=== PATIENT | female | born 1950 | race Caucasian/White ===

== ENCOUNTER 2019-12-15 12:58 | Outpatient (CLI) | payer MEDICARE, OTHER, SELFPAY ==
--- NOTE | ~2019-12-15 | US_ITS ---
EXAMINATION: US carotid duplex BI DATE: 12/15/2019 13:35 INDICATION: Stroke. TECHNIQUE: Grayscale, color Doppler, and pulsed Doppler images of the cervical carotid arteries were obtained. The degree of vessel stenosis is placed in one of the following categories: normal, <50%, 5 0-69%, >=70% but less than near-occlusion, near-occlusion, or total occlusion. Note that percent sten osis relative to normal distal artery lumen diameter is indirectly measured from velocity measurement s as described by Michael, et al. Radiology 2003; 229:340-346. COMPARISON: Ultrasound 07/17/2018, CTA neck 07/17/2018 FINDINGS: RIGHT: The right common carotid artery (CCA) peak systolic velocity (PSV) is 57 cm/s. The right internal car otid artery (ICA) PSV is 257 cm/s. The right ICA end-diastolic velocity (EDV) is 91 cm/s. The right I CA/CCA PSV ratio is 4.5. Grayscale and color Doppler images yield an estimate of >=50% diameter reduc tion from plaque in the ICA. There is antegrade flow in the right vertebral artery. LEFT: The left CCA PSV is 77 cm/s. The left ICA PSV is 129 cm/s. The left ICA EDV is 50 cm/s. The left ICA/ CCA PSV ratio is 1.7. Grayscale and color Doppler images yield an estimate of <50% diameter reduction from plaque in the ICA. There is antegrade flow in the left vertebral artery. IMPRESSION: 1. >=70% stenosis in the right internal carotid artery, but less than near occlusion. 2. <50% stenosis in the left internal carotid artery. Reviewed, dictated and finalized at location A. ER TENDER IMPRESSION: 1. >=70% stenosis in the right internal carotid artery, but less than near occl usion. 2. <50% stenosis in the left internal carotid artery.
== END 2019-12-15 12:59 | disposition home or self-care (01) ==
PROVIDERS: PCP Internal Medicine; Visit Provider Internal Medicine
DX: I65.23 Occlusion and stenosis of bilateral carotid arteries (principal)
CPT/HCPCS: 93880

== ENCOUNTER 2020-01-29 08:57 | Outpatient (CLI) | payer MEDICARE, OTHER, SELFPAY ==
--- NOTE | 2020-02-13 17:27 | SLEEP_ITS ---
Basic nocturnal polysomnogram. DATE OF STUDY: 01/29/2020 ORDERING PROVIDER: Emmy Veras. REASON FOR THIS STUDY: Poor quality sleep, recent stroke and atrial fibrillation. HISTORY: This patient is a 69-year-old female, 5 feet 4 inches tall, weighing 197 pounds with a body mass index of 33.8. She had a stroke in July of 2018. She has had atrial fibrillation. Her workers compensation claims specialist was recommending a sleep study, but she has put it off. 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 In addition to atrial fibrillation, she had atrial flutter found on a heart monitor. She has unusual sleep schedule, staying up very late and sleeping in late. She has restless sleep, tossing and turning. She sleeps in a separate room from her , as he goes to sleep at 9 o'clock and wakes around 5 in the morning. She is not aware of snoring, but her spouse says that she snores. She says that it is rare that others complain about it. She does not awaken from sleep feeling short of breath or with heartburn or choking. She occasionally has trouble sleeping with a cold. She does not gasp for breath at night. She rarely is told by others that she has breathing problems at night. She does not sweat excessively at night. She occasionally notices her heart pounding or beating irregularly at night. She occasionally falls asleep in the chair more frequently as she is watching television in the recliner. She rarely falls asleep involuntarily. She never falls asleep while driving. She does not fall asleep during physical effort or with laughing or crying. She does not have loss of muscle tone with strong emotion. She is retired, so her daytime sleepiness does not impact her functioning. She occasionally feels paralyzed on waking or falling asleep. She rarely has vivid dreamlike scenes upon awakening or falling asleep. She is never afraid to go to sleep. She denies having nightmares. She rarely remembers her dreams. She occasionally has racing thoughts. She occasionally feels sad or depressed. She frequently is having anxiety mainly about the current pandemic. She occasionally has muscular tension. She rarely notices parts of her body jerking. She rarely kicks at night. She does not have crawly achy feelings in her legs. She occasionally has leg pain at night. She does not have morning jaw pain. She does not grind her teeth. She occasionally is bothered by pain in her hip and knee during the day. She rarely is awakened by pain at night. She occasionally wakes up feeling stiff in the morning. She rarely wakes up with sore or achy muscles and rarely wakes up with pain in the neck and spine. She has memory problems and palpitations. Normal bedtime is between 2:00 a.m. and 4:30 a.m. taking a 0.5 hour to fall asleep, waking one to three times to use the bathroom. She wakes in the morning between 11:00 a.m. or 2 in the afternoon. Weekend schedule is the same. She estimates that she gets between 6 and 8 hours of sleep at night. She does take naps. A short nap can be refreshing. She feels better in the evening than immediately after waking up. She never smoked tobacco. She has 1 cup of coffee a day. She has off a glass of wine once a month. MEDICAL COMORBIDITIES: Hypertension, atrial fibrillation, atrial flutter, tachy-nikolas syndrome, dyslipidemia, right basal ganglia stroke on July 16, 2018. MEDICATIONS: 1. Losartan/hydrochlorothiazide 100/12.5 one tablet daily. 2. Ruffin-3 fatty acids 5 meals daily. 3. Xarelto 20 mg daily. 4. Rosuvastatin 20 mg a day. 5. Kenalog cream for her eczema. 6. Cannabidiol extract 1 daily as needed. 7. Vitamin B12 drops 1 under the tongue daily. 8. Acetaminophen p.r.n. q.6 hours pain. DESCRIPTION OF THE STUDY: On the
== END 2020-01-29 08:58 | disposition home or self-care (01) ==
LOC: ANHCSM 08:58
PROVIDERS: PCP Internal Medicine; Visit Provider Nurse Practitioner Adult Health
DX: I49.8 Other specified cardiac arrhythmias (principal)
CPT/HCPCS: 95810

== ENCOUNTER 2020-10-07 15:02 | Outpatient (CLI) | payer MEDICARE, OTHER, SELFPAY ==
--- NOTE | ~2020-10-07 | XR_ITS ---
EXAMINATION: XR shoulder LT min 2V DATE: 10/07/2020 15:32 INDICATION: Left shoulder pain. TECHNIQUE: 4 views of left shoulder were obtained. COMPARISON: Left shoulder radiographs 05/29/2013 FINDINGS: Bone alignment is normal. No fracture. Joint spaces are well maintained. IMPRESSION: 1. Normal left shoulder. Reviewed, dictated and finalized at location A. E HOST IMPRESSION: 1. Normal left shoulder.
--- NOTE | ~2020-10-07 | XR_ITS ---
EXAMINATION:XR_CERV2-3V_CR DATE: 10/07/2020 15:33 INDICATION: 3 days of posterior neck pain radiating to the left shoulder TECHNIQUE: 3 lateral views of the cervical spine were obtained in neutral, flexion and extension COMPARISON: None FINDINGS: 1-2 mm anterolisthesis of C4 on C5 and C5 on C6, both of which remain unchanged with flexion and whic h reduces to neutral on extension. Odontoid is intact. Normal atlantoaxial interval. Vertebral body heights are normal. Mild disc height loss at C6-C7, minimal at C4-C5. Multilevel mild to moderate cer vical facet osteoarthritis. Prevertebral soft tissues are normal. Likely atherosclerotic calcificati ons in the region of the carotid bulbs. IMPRESSION: 1. Mild cervical spondylosis with 1-2 mm anterolisthesis C4 on C5 which is unchanged with flexion whi ch reduces on extension. Reviewed, dictated and finalized at location . SURVEY WORKER IMPRESSION: 1. Mild cervical spondylosis with 1-2 mm anterolisthesis C4 on C5 which is unch anged with flexion which reduces on extension.
== END 2020-10-07 15:03 | disposition home or self-care (01) ==
PROVIDERS: PCP Internal Medicine; Visit Provider Internal Medicine
DX: M47.812 Spondylosis without myelopathy or radiculopathy, cervical region (principal); M25.512 Pain in left shoulder
CPT/HCPCS: 72040; 73030

== ENCOUNTER 2020-10-14 13:23 | Outpatient (CLI) | payer MEDICARE, OTHER, SELFPAY ==
--- NOTE | ~2020-10-14 | CT_ITS ---
EXAMINATION: CTA neck EXAM DATE: 10/14/2020 13:58 INDICATION: Z86.73 - Personal history of transient ischemic attack (TIA) TECHNIQUE: Spiral CTA of the carotid arteries was performed with intravenous injection 100cc of Omnip aque 350. Axial, coronal, sagittal reformatted images reviewed. Additional reformatted images creat ed on dedicated 3-D workstation. NASCET comparable standard used to assess the degree of arterial st enosis. The dose-length product (DLP) for this examination was 570.09 mGy-cm. The exposure was tail ored according to patient size (auto mA exposure control), and iterative reconstruction (ASIR) was us ed as additional dose reduction technique. There is no prior study for comparison. FINDINGS: There is moderate right carotid bulb calcified and noncalcified plaque, with the distal asp ect of the bulb demonstrating 60% stenosis. There is less plaque in the left carotid bulb with 0% jimmy nosis. There is tortuosity of the left internal carotid artery proximally with some kinking of this v essel. Mild bilateral carotid siphon arterial sclerosis without stenosis. The vertebral arteries are codominant. There is no carotid or vertebral arterial dissection or fibromuscular dysplasia. Mild to moderate cervical spondylosis. IMPRESSION: 1. Right carotid bulb 60% stenosis distally. 2. Left carotid 0% stenosis. Reviewed, dictated and finalized at location A. WASHER
[2020-10-14 13:52] LABS: Estimated Glomerular Filt Rate 49
== END 2020-10-14 13:24 | disposition home or self-care (01) ==
PROVIDERS: PCP Internal Medicine; Visit Provider Internal Medicine
DX: I65.21 Occlusion and stenosis of right carotid artery (principal)
CPT/HCPCS: 70498; Q9967

== ENCOUNTER 2021-06-05 09:37 | Outpatient (CLI) | payer MEDICARE, OTHER, SELFPAY ==
--- NOTE | ~2021-06-05 | US_ITS ---
US abdomen limited DATE: 06/05/2021 10:34 INDICATION: Right upper quadrant abdominal pain, epigastric pain TECHNIQUE: Real-time imaging of liver, pancreas, gallbladder COMPARISON: gallbladder ultrasound examination FINDINGS: No hepatic space-occupying mass lesion is evident. Normal hepatopedal portal venous flow di rection. No pancreatic mass lesion is detected, but the tail is not completely visualized. There are multiple dependent gallstones, the largest approximately 1.8 cm. Negative sonographic Edu y's sign. Common bile duct measures 4 mm IMPRESSION: Cholelithiasis Reviewed, dictated and finalized at Location A. Reviewed, dictated and finalized at location A. IMPRESSION: Cholelithiasis
== END 2021-06-05 09:38 | disposition home or self-care (01) ==
PROVIDERS: PCP Internal Medicine; Visit Provider Internal Medicine
DX: R10.11 Right upper quadrant pain (principal); Z87.19 Personal history of other diseases of the digestive system; K80.20 Calculus of gallbladder without cholecystitis without obstruction
CPT/HCPCS: 76705

== ENCOUNTER 2023-02-09 14:45 | Outpatient (CLI) | payer MEDICARE, OTHER, SELFPAY ==
--- NOTE | ~2023-02-09 | XR_ITS ---
EXAMINATION: XR forearm LT 2V INDICATION: Left elbow pain, initial encounter TECHNIQUE: Two views of the left elbow were obtained. COMPARISON: None available FINDINGS: There is a nondisplaced fracture in the lateral aspect of the humeral head which extends to the proximal articular surface. An elbow joint effusion is present. No additional acute osseous abno rmality is identified. IMPRESSION: 1. Nondisplaced radial head fracture. Reviewed, dictated and finalized at location F.
== END 2023-02-09 14:46 | disposition home or self-care (01) ==
PROVIDERS: PCP Internal Medicine; Visit Provider Internal Medicine
DX: S52.125A Nondisplaced fracture of head of left radius, initial encounter for closed fracture (principal); X58.XXXA Exposure to other specified factors, initial encounter
CPT/HCPCS: 73090

== ENCOUNTER 2023-02-16 12:57 | Outpatient (CLI) | payer MEDICARE, OTHER, SELFPAY ==
--- NOTE | ~2023-02-16 | CT_ITS ---
EXAMINATION: CT abdomen pelvis wo con DATE: 02/16/2023 13:27 INDICATION: Microscopic and gross hematuria TECHNIQUE: Computed tomography (CT) of the abdomen and pelvis was performed without intravenous contr ast. The dose-length product (DLP) was 862.93 mGy-cm. Automated exposure control and iterative recons truction technique were employed. COMPARISON: None FINDINGS: Minimal dependent atelectasis is present in the lung bases. Cardiomegaly is noted. A stone is present in the nondistended gallbladder. The liver, spleen, pancreas, and adrenal glands are aurelio l. Nonobstructing stones of the right kidney measure up to 3 mm. There is a 3 mm nonobstructing stone of the left kidney. There is a 1.5 cm cyst of the left kidney. There is a 3 mm stone of the distal l eft ureter. No significant hydronephrosis or hydroureter are identified. Colonic diverticulosis is pr esent without evidence of diverticulitis. The appendix is normal. There is moderate lumbar spondylosi s. No pathologically enlarged abdominal or pelvic lymph nodes are identified. No free intraperitonea l gas or evidence of bowel obstruction. IMPRESSION: 1. 3 mm stone of the distal left ureter. 2. Nonobstructing bilateral nephrolithiasis. Reviewed, dictated and finalized at location B.
--- NOTE | ~2023-02-16 | US_ITS ---
EXAMINATION: US carotid duplex BI DATE: 02/16/2023 15:34 INDICATION: Carotid atherosclerosis and stenosis. Transient ischemic attack. TECHNIQUE: Grayscale, color Doppler, and pulsed Doppler images of the cervical carotid arteries were obtained. The degree of vessel stenosis is placed in one of the following categories: normal, <50%, 5 0-69%, >=70% but less than near-occlusion, near-occlusion, or total occlusion. Note that percent sten osis relative to normal distal artery lumen diameter is indirectly measured from velocity measurement s as described by Michael, et al. Radiology 2003; 229:340-346. COMPARISON: 12/15/2019 FINDINGS: RIGHT: The right common carotid artery (CCA) peak systolic velocity (PSV) is 65 cm/s. The right internal car otid artery (ICA) PSV is 148 cm/s. The right ICA end-diastolic velocity (EDV) is 48 cm/s. The right I CA/CCA PSV ratio is 2.3. Grayscale and color Doppler images yield an estimate of 50-69% diameter redu ction from plaque in the ICA. The external carotid artery (ECA) PSV is 11 cm/s. There is antegrade fl ow in the right vertebral artery. LEFT: The left CCA PSV is 81 cm/s. The left ICA PSV is 102 cm/s. The left ICA EDV is 37 cm/s. The left ICA/ CCA PSV ratio is 1.3. Grayscale and color Doppler images yield an estimate of <50% diameter reduction from plaque in the ICA. The ECA PSV is 65 cm/s. There is antegrade flow in the left vertebral artery . IMPRESSION: 1. 50-69% stenosis in the right internal carotid artery. 2. <50% stenosis in the left internal carotid artery. 3. Cardiac arrhythmia is present. Correlate with EKG. Reviewed, dictated and finalized at location A.
== END 2023-02-16 12:58 | disposition home or self-care (01) ==
PROVIDERS: PCP Internal Medicine; Visit Provider Internal Medicine
DX: R31.9 Hematuria, unspecified (principal); I65.23 Occlusion and stenosis of bilateral carotid arteries; R09.89 Other specified symptoms and signs involving the circulatory and respiratory systems; Z86.73 Personal history of transient ischemic attack (TIA), and cerebral infarction without residual deficits; N20.2 Calculus of kidney with calculus of ureter
CPT/HCPCS: 74176; 93880

== ENCOUNTER 2023-04-28 16:36 | Outpatient (CLI) | payer MEDICARE, OTHER, SELFPAY ==
--- NOTE | ~2023-04-28 | CT_ITS ---
Non-contrast CT scan of the Abdomen and Pelvis Clinical indication: Abdominal pain Technique: 2.5 mm axial scans were obtained through the abdomen and pelvis without intravenous or or al contrast. Dose reduction technique was used on this scan by utilizing automated exposure control a nd iterative reconstruction technique. The dose-length product (DLP) was 445.65 mGy-cm. Findings: Images through the lung bases reveal minimal bibasilar scarring or atelectasis. Small bilateral nonobstructing renal stones are present. No ureteral stone or hydronephrosis on eithe r side. The liver, spleen, pancreas, and adrenals appear normal. Small calcified gallstones are present. Ther e are atherosclerotic calcifications of the aorta. There is no evidence of bowel obstruction. Images through the pelvis were performed. There is no evidence of ascites or lymphadenopathy. Urinary bladder unremarkable. No adnexal mass seen. Impression: Small bilateral nonobstructing renal stones. Cholelithiasis. Reviewed, dictated and finalized at [facility]. Impression: Small bilateral nonobstructing renal stones. Cholelithiasis.
== END 2023-04-28 16:37 | disposition home or self-care (01) ==
LOC: ANHIMG 16:42
PROVIDERS: PCP Internal Medicine; Visit Provider Urology
DX: N20.1 Calculus of ureter (principal); K80.20 Calculus of gallbladder without cholecystitis without obstruction
CPT/HCPCS: 74176

== ENCOUNTER 2023-08-23 12:50 | Outpatient (CLI) | payer MEDICARE, OTHER, SELFPAY | END 2023-08-23 12:51 | disposition home or self-care (01) | LOC: ANHAUDASC 12:51 | PROVIDERS: PCP Internal Medicine; Visit Provider Internal Medicine | DX: H90.3 Sensorineural hearing loss, bilateral (principal) | CPT/HCPCS: 92557; 92567 ==

== ENCOUNTER 2023-10-19 14:49 | Outpatient (CLI) | payer MEDICARE, OTHER, SELFPAY ==
--- NOTE | ~2023-10-19 | XR_ITS ---
XR knee LT min 4V 10/19/2023 15:30 Indication: Left knee pain Procedure: 4 views left knee Comparison: No prior studies for comparison. Findings: Moderate osteoarthritis. No fracture or traumatic malalignment. No significant joint effusi on. No foreign bodies. Impression: 1: Moderate tricompartment osteoarthritis. Reviewed, dictated and finalized at location L. ICIAN GYNECOLOGIST Impression: 1: Moderate tricompartment osteoarthritis.
--- NOTE | ~2023-10-19 | XR_ITS ---
EXAM: XR elbow LT min 3V DATE: 10/19/2023 15:30 HISTORY: FALL 1 DAY,ABRASIONS POST ELBOW/ANT KNEE, HX RADIAL FX 01/07 . COMPARISON: 03/23/2023; x-ray forearm 02/01/2023. FINDINGS: Normal mineralization. Longitudinal oriented fracture of the radial head, with minimal dep ression of the lateral segment. Fracture line is located in a very similar location to that seen in t he prior studies, which raises the possibility of incomplete healing or nonunion. Small joint effusio n. No lytic or blastic lesion. Joint spaces are maintained. No erosion or periosteal change. Posterio r soft tissue swelling. IMPRESSION: Acute fracture of the left radial head versus incomplete healing/nonunion of the previous ly reported radial head fracture. Correlate for acute pain/tenderness over the radial head. Reviewed, dictated and finalized at location K. SQL DEVELOPER IMPRESSION: Acute fracture of the left radial head versus incomplete healing/no nunion of the previously reported radial head fracture. Correlate for acute jolly n/tenderness over the radial head.
== END 2023-10-19 14:50 | disposition home or self-care (01) ==
LOC: ANHIMG 14:58
PROVIDERS: PCP Internal Medicine; Visit Provider Internal Medicine
DX: M17.12 Unilateral primary osteoarthritis, left knee (principal); M25.562 Pain in left knee; M25.522 Pain in left elbow; R93.6 Abnormal findings on diagnostic imaging of limbs
CPT/HCPCS: 73080; 73564

== ENCOUNTER 2024-04-24 13:27 | Outpatient (CLI) | payer MEDICARE, OTHER, SELFPAY ==
--- NOTE | ~2024-04-24 | US_ITS ---
EXAMINATION:US venous doppler LE BI INDICATION:Edema TECHNIQUE: Multiple grayscale, color flow and Doppler images of the right and left lower extremity de ep venous systems were obtained and reviewed. COMPARISON:No prior studies for comparison. FINDINGS: The common femoral, superficial femoral and popliteal veins demonstrate normal respiratory variation, augmentation and compressibility. Color flow is also seen within the posterior tibial, pe roneal, greater saphenous and profunda veins. There is a fluid collection in the left popliteal fossa , consistent with a Davison's cyst. IMPRESSION: 1: No lower extremity deep venous thrombosis. Reviewed, dictated and finalized at location B.
== END 2024-04-24 13:28 | disposition home or self-care (01) ==
LOC: ANHIMG 13:27
PROVIDERS: PCP Internal Medicine; Visit Provider Internal Medicine
DX: R60.9 Edema, unspecified (principal); M79.89 Other specified soft tissue disorders; M79.604 Pain in right leg; M79.605 Pain in left leg; M79.671 Pain in right foot; M79.672 Pain in left foot
CPT/HCPCS: 93970

== ENCOUNTER 2024-08-24 15:14 | Outpatient (CLI) | payer MEDICARE, OTHER, SELFPAY ==
--- NOTE | ~2024-08-24 | MM_ITS ---
EXAMINATION: MM screening timothy BI w miguel HISTORY: Screening. Family history of breast cancer. Diagnosed in patient's sister postmenopausal. TECHNIQUE: Craniocaudal and mediolateral oblique 3-D tomosynthesis images were obtained and synthetic 2-D images were generated. CAD analysis was submitted and interpreted. COMPARISON: Examination was compared with multiple prior studies performed most recently on 11/21/2012 and dating back to 07/03/2006 BREAST PARENCHYMAL COMPOSITION: Not Dense. The breasts are almost entirely fatty. FINDINGS: Oil cysts within the right breast, a benign finding. Punctate calcifications are detected bilaterally, benign in appearance. Stable parenchymal pattern without suspicious microcalcifications, architectural distortion, discrete masses or significant asymmetry. IMPRESSION: 1. No mammographic evidence of malignancy. 2. Recommend routine screening mammography in one year. BI-RADS Category 2: Benign finding(s). Reviewed, dictated and finalized at location A.
== END 2024-08-24 15:15 | disposition home or self-care (01) ==
PROVIDERS: PCP Internal Medicine; Visit Provider Internal Medicine
DX: Z12.31 Encounter for screening mammogram for malignant neoplasm of breast (principal)
CPT/HCPCS: 77063; 77067

== ENCOUNTER 2025-02-27 13:38 | Outpatient (CLI) | payer MEDICARE, OTHER, SELFPAY ==
--- NOTE | ~2025-02-27 | XR_ITS ---
Right Hand Technique: PA, oblique, and lateral views were obtained. Clinical History: Pain Findings: No acute fracture or dislocation is seen. Osseous alignment is anatomic. Joint spaces are p reserved. Soft tissues are unremarkable. Impression: Unremarkable right hand. Reviewed, dictated and finalized at location M. Impression: Unremarkable right hand.
--- NOTE | ~2025-02-27 | XR_ITS ---
Left Hand Technique: PA, oblique, and lateral views were obtained. Clinical History: Pain Findings: No acute fracture or dislocation is seen. Osseous alignment is anatomic. Joint spaces are p reserved. Soft tissues are unremarkable. Impression: Unremarkable left hand. Reviewed, dictated and finalized at location M. Impression: Unremarkable left hand.
--- OUTSIDE RECORDS SUMMARY | 2025-02-27 14:43 | XMS_ITS | Clinical Summary ---
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 Gender Identity Not on file Sexual Orientation Not on file Plan of Treatment Health Maintenance Due Date Last Done Comments Colorectal Cancer Screening Colonoscopy (10 Years) 1951 Hepatitis C 1969 DTaP, Tdap and Td Vaccines ( 1 - Tdap) 1970 Mammogram Screening 1991 Pneumococcal Vaccine: 50+ Ye ars (1 of 1 - PCV) 2001 Zoster Vaccines (1 of 2) 2001 Annual Medicare Wellness Visit 2016 Dexa Scan (General) 2016 COVID-19 Vaccine ( - 2023-2 5 season) 2024 RSV Immunization or 60+ Years (1 - 1-dose 75+ series) 2026 Meningococcal B Vaccine Aged Out No l onger eligible based on patient's age to complete this topic Meningococcal Vaccine Aged Out No kartik johnny eligible based on patient's age to complete this topic RSV Immunizations Under 20 Months Aged Out No longer eligible based on patient's age to complete this topic Insurance MEDICARE GENERIC - COMMERCIAL on file Care Teams Interactive Media Designer Relationship Specialty Start Date End Date Cuco Faria MD [address] [place] [address] PCP - General INTERNAL MEDICINE 10/09/20
--- OUTSIDE RECORDS SUMMARY | 2025-02-27 14:43 | XMS_ITS | Clinical Summary ---
Author Organization [facility] [address] Address [address] [place] [address] Care Team Providers Care Log Chain Feeder Name Role Phone Cuco Faria MD Primary Care Provider [phone] Allergies No known active allergies Medications omega 1-kfc-ssc-other om3-D3 2,200 mg-1,000 unit/5 mL liquid Take by mouth Active acetaminophen (TYLENOL) 500 mg tablet Take 2 tablets (1,000 mg total) by mouth every 6 (six) hours as needed for pain Active cholecalciferol (VITAMIN D-3) 1,000 unit capsule Take 1 capsule (1,000 Units total) by mouth daily Active losartan (COZAAR) 100 mg tablet Take 1 tablet (100 mg total) by mouth daily 2 Active Kenalog-80 80 mg/mL injection ADMINISTER 1 ML IN THE MUSCLE 1 TIME NEEDED FOR ECZEMA 2 Active UNABLE TO FIND - ENTER DRUG NAME IN NOTES TO PHARMACY ZEAXANTHIN 10MG+LUTEIN 10MG-1 CAP DAILY Active triamcinolone (KENALOG) 0.1 % cream Apply topically 2 (two) times a day 3 Active biotin 10,000 mcg capsule 4 Active metoprolol XL (TOPROL-XL) 25 mg extended release tablet TAKE 1 TABLET(25 MG) BY MOUTH DAILY 90 tablet 3 4 Active rosuvastatin (CRESTOR) 20 mg tablet Take 1 tablet (20 mg total) by mouth daily 90 tablet 3 4 Active rivaroxaban (Xarelto) 20 mg tabletIndication s:Atrial fibrillation, unspecified type (HCC) TAKE 1 TABLET(20 MG) BY MOUTH DAILY 90 tablet 3 4 Active Active Problems Problem Noted Date Diagnosed Date Pulmonary HTN 01/17/2024 Right ventricular enlargement 01/17/2024 Mixed hyperlipidemia 05/01/2022 H/O: CVA (cerebrovascular accident) 07/28/2019 Stenosis of right carotid artery 07/28/2019 Atrial flutter 07/28/2019 Chronic anticoagulation 08/23/2018 ÁNGEL (obstructive sleep apnea) 08/23/2018 Paroxysmal atrial fibrillation (CMS/HCC) 018 HTN (hypertension), benign 08/04/2018 Bradycardia 08/04/2018 Tachycardia-bradycardia 08/04/2018 Elevated troponin I level 08/04/2018 Other chest pain 08/04/2018 Resolved Problems Problem Noted Date Diagnosed Date Resolved Date CVA (cerebral vascular accident) (CMS/HCC) 08/04/2018 05/01/2022 Dyslipidemia 08/04/2018 05/01/2022 Surgical History Surgery Date Site/Laterality Comments TONSILLECTOMY Medical History Medical History Date Comments Hypertension Hyperlipidemia Stroke (HCC) Atrial fibrillation (HCC) Family History Medical History Relation Name Comments Heart disease Father Colon cancer Mother Heart disease Mother Relation Name Status Comments Father (Age 74) Mother (Age 79) Social History Tobacco Use Types Packs/Day Years Used Date Smoking Tobacco: Never Smokeless Tobacco: Never Tobacco Cessation:Counseling Given: Yes Alcohol Use Standard Drinks/Week Comments Yes 0 (1 standard drink = 0.6 oz pur e alcohol) occasionally Personal Safety Answer Date Recorded Getting School Help Needed Not on file 12/16 Comments Unknown Sex and Gender Information Value Date Recorded Sex Assigned at Not on file 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 Gender Identity Not on file Sexual Orientation Not on file Obstetrics History Last Filed Vital Signs Vital Sign Reading Time Taken Comments Blood Pressure 138/80 07/28/2024 2:26 PM CDT Pulse 70 07/28/2024 2:26 PM CDT Temperature 36.7 C (98.1 F) 07/31/2021 1:01 PM CDT Respiratory Rate - - Oxygen Saturation 98% 07/28/2024 2:26 PM CDT Inhaled Oxygen Concentration - - Weight 84.9 kg (187 lb 3.2 oz) 07/28/2024 2:26 P M CDT Height 162.6 cm (5' 4 ) 07/28/2024 2:26 PM CDT Body Mass Index 32.13 07/28/2024 2:26 PM CDT Plan of Treatment Health Maintenance Due Date Last Done Comments Breast Cancer Screening-Mammogram 1950 Colon Cancer Screening-Colonoscopy 1950 Depression Screening 1950 Fall Risk Assessment 1950 Hepatitis C Screening 1950 Osteoporosis Screening-Bone Density Scan 1951 Hepatitis B Screening 1969 Pneumococcal vaccine 65+ (1 of 1 - PCV) 2001 Zoster Vaccine (1 of 2) 2001 DTaP/Tdap/Td Vaccine (1 - Tdap) 03/22/2010 0 Well Visit 65+ 2016 Influenza Vaccine (Season Ended) 2025 Insurance MEDICARE [facility] [address] MEDICARE [employer]ARE [employer] Care Teams Log Chain Feeder Relationship Specialty Start Date End Date Cuco Faria MD [address] [facility] [address] [facility] [address] [place] [address] PCP - General Internal Medicine 07/21/18
--- OUTSIDE RECORDS SUMMARY | 2025-02-27 14:43 | XMS_ITS | Referral Summary ---
Author Organization [facility] [address] Address [address] [place] [address] Care Team Providers Care Linderman Operator Name Role Phone Cuco Faria MD Primary Care Provider [phone] Allergies No known active allergies Medications omega [id number]-nbr-gbd-other om3-D3 2,200 mg-1,000 unit/5 mL liquid Take [...] 20 mg tabletIndication s:Atrial fibrillation, unspecified type ([facility]) TAKE 1 TABLET(20 MG) BY MOUTH DAILY 90 tablet 3 4 Active Active Problems Problem Noted Date Diagnosed Date Pulmonary HTN 01/17/2024 Right ventricular enlargement 01/17/2024 Mixed hyperlipidemia 05/01/2022 H/O: CVA (cerebrovascular accident) 07/28/2019 Stenosis of right carotid artery 07/28/2019 Atrial flutter 07/28/2019 Chronic anticoagulation 08/23/2018 ÁNGEL (obstructive sleep apnea) 08/23/2018 Paroxysmal atrial fibrillation ([facility]) 018 HTN (hypertension), benign 08/04/2018 Bradycardia 08/04/2018 Tachycardia-bradycardia 08/04/2018 Elevated troponin I level 08/04/2018 Other chest pain 08/04/2018 Resolved Problems Problem Noted Date Diagnosed Date Resolved Date CVA (cerebral vascular accident) ([facility]) 08/04/2018 05/01/2022 Dyslipidemia 08/04/2018 05/01/2022 Social History Tobacco Use Types Packs/Day Years [...] on file Legal Sex Female 3:05 AM [employer] Gender Identity Not on file Sexual Orientation Not on file Last Filed Vital Signs Vital Sign Reading [...] 07/28/2024 2:26 PM CDT Plan of Treatment Not on file Insurance MEDICARE [facility] MEDICARE [facility] MEDICARE [employer] Care Teams Linderman Operator Relationship Specialty Start Date End Date Cuco Faria MD [address] [facility] [address] [place] [address] PCP - General Internal Medicine 07/21/18
== END 2025-02-27 13:39 | disposition home or self-care (01) ==
PROVIDERS: PCP Internal Medicine; Visit Provider Plastic Surgery
DX: M18.12 Unilateral primary osteoarthritis of first carpometacarpal joint, left hand (principal); M65.4 Radial styloid tenosynovitis [de Quervain]
CPT/HCPCS: 73130

== ENCOUNTER 2025-03-20 14:43 | Outpatient (CLI) | payer MEDICARE, OTHER, SELFPAY ==
--- NOTE | ~2025-03-20 | XR_ITS ---
XR knee LT min 4V Ordering provider: Eren Cordero MD History: . M17.12 - Unilateral primary osteoarthritis, left knee . Comparison: None. FINDINGS: BONES: No acute fracture or dislocation. JOINT SPACES: Severe narrowing of the medial compartment. SOFT TISSUES: Atherosclerotic changes. IMPRESSION: No acute osseous abnormality left knee. Severe osteoarthritic changes. Reviewed, dictated and finalized at location A.
== END 2025-03-20 14:44 | disposition home or self-care (01) ==
LOC: MICIMG 14:45
PROVIDERS: PCP Internal Medicine; Visit Provider Orthopaedic Surgery
DX: M17.12 Unilateral primary osteoarthritis, left knee (principal)
CPT/HCPCS: 73564

== ENCOUNTER 2025-09-17 15:36 | Outpatient (CLI) | payer MEDICARE, OTHER, SELFPAY ==
--- NOTE | ~2025-09-17 | XR_ITS ---
[id number] Indication: M54.12 - Radiculopathy, cervical region Comparison: None Findings: Grade 1 anterolisthesis of C5 on C6, no fracture. Moderate loss of disc height C6-7. Soft tissues unremarkable Impression: No acute abnormality. Reviewed, dictated and finalized at location P. DATA TECHNICIAN Impression: No acute abnormality.
== END 2025-09-17 15:37 | disposition home or self-care (01) ==
LOC: MICIMG 15:37
PROVIDERS: PCP Internal Medicine; Visit Provider Internal Medicine
DX: M54.12 Radiculopathy, cervical region (principal)
CPT/HCPCS: 72040